=== PATIENT | female | born 1990 ===

== ENCOUNTER → 2020-07-07 | Outpatient (REF) ==
[2020-07-08 16:03] LABS: CHLAMYDIA DNA AMPLIFICATION NEGATIVE (NEGATIVE); GC DNA AMPLIFICATION NEGATIVE (NEGATIVE)
== END ==
LOC: M LAB LCGH 12:33
PROVIDERS: ATTEND Physician Assistant
DX: Z00.00 Encounter for general adult medical examination without abnormal findings (principal)